=== PATIENT | female | born 1960 | race Two or more races ===

== ENCOUNTER → 2020-08-25 | Outpatient (CLI) | payer OTHER ==
--- NOTE | 2020-08-25 17:57 | RAD ---
EXAM: Ultrasound-guided biopsy of right axillary lymph node and right diagnostic mammogram 08/25/2020 8:08 AM INDICATION: Abnormal right axillary lymph node COMPARISON: Screening mammogram and right axillary ultrasound 01/22/2020 TECHNIQUE/FINDINGS: The purpose of the procedure, risks and benefits were explained to the patient. Informed consent was obtained. A timeout was performed. The patient was placed supine on the ultrasound table. The abnormal right axillary lymph node measuri ng 2.7 x 2.4 x 2.0 cm was identified. Overlying skin marked, prepped, draped in standard sterile fash ion. Skin was anesthetized with 1 percent lidocaine. Next, 5 core biopsy samples were obtained with a coaxial 14-gauge biopsy device. Samples were placed both in formalin and flow cytometry and sent to the laboratory for analysis. A biopsy marker was then placed at the biopsy site under ultrasound. Nee dles were removed, pressure held for hemostasis, and skin cleansed and covered with a dressing. The p atient tolerated the procedure well and left in stable condition. Post clip mammogram demonstrates appropriate position of clip the right axillary lymph node.. IMPRESSION:Technically successful ultrasound-guided biopsy of abnormal right axillary lymph node and clip placement. Electronically signed by: Evita Nieto MD (08/25/2020 5:55 PM) [id number]
--- NOTE | 2020-08-26 17:08 | PATHOLOGY ---
[facility] Accession Number: [id number] . 01 Material submitted: . axilla - RIGHT AXILLA MASS 2.3CM. Modifiers: right . 01 Clinical history: . RIGHT AXILLARY MASS RIGHT AXILLARY BIOPSY ABNORMAL AM... NO DISCRETE BREAST MASS; SINGLE ENLARGED AXILLARY LYMPH NODE . 02 Diagnosis: Right axillary mass, needle biopsies: - Epidermal inclusion cyst, with focal chronic inflammation and foreign body granulomatous reaction. (JPM:marcel; 08/26/2020) S 08/26/2020 1607 Local . 02 Comment: Sections of the right axillary mass needle biopsy primarily reveal keratinaceous material. There are a few tissue fragments comprised of fibrous tissue which is lined by a keratinizing stratified squamous epithelium. The fibrous stroma shows focal chronic inflammation and foreign body granulomatous reaction. The findings are supportive of the diagnosis of epidermal inclusion cyst. There is no evidence of malignancy. (JPM:marcel; 08/26/2020) . 02 Electronically signed: . Chris Lopes MD, Pathologist NPI- [id number] . 01 Gross description: . Received in formalin labeled "Dubose, Maria D and right axilla". Received are multiple cores of yellow-white tissue ranging from 0.3-1.6 cm in length and 0.2 cm in diameter. The specimen is entirely submitted in cassette A1-A2. The specimen was collected on 08/25/2020. The time in formalin is not specified on the container or requisition. The specimen will be removed from formalin on 08/25/2020 at 11:40 PM. The specimen will be in formalin more than 6 hours and less than 72 hours.(BLJ; 08/25/2020) BLJ/BLJ 08/26/2020 1434 Local . 02 Pathologist provided ICD-10: L72.0, L98.9 . 02 CPT . 463912 Specimen Comment: A courtesy copy of this report has been sent to [phone], [phone] Specimen Comment: [id number] Specimen Comment: Report sent to / DR TURCIOS Performed at: 01 [facility] [address], [place], [place] [id number] MD Julian Cueva MD Phone: [phone] Performed at: 02 [facility] [address] [place], [place] [id number] MD Chris Lopes MD Phone: [phone]
== END | disposition home or self-care (01) ==
LOC: US 07:54
PROVIDERS: ATTEND Nurse Practitioner Women's Health
DX: R92.8 Other abnormal and inconclusive findings on diagnostic imaging of breast (principal); R59.0 Localized enlarged lymph nodes; L72.0 Epidermal cyst
CPT/HCPCS: 38505; 76942; 88184; 88185; 88304; A4648; 10005; 77065